=== PATIENT | female | born 1950 | race Caucasian/White ===

== ENCOUNTER 2017-04-27 18:22 | Emergency (ER) | payer MEDICARE ==
[2017-04-27 19:47] VITALS: BP 143/83; TEMP 98; O2SAT 97
[2017-04-27] MEDS ORDERED: CHLORHEXIDINE GLUCONATE 4 % 15 ML UD TOP ONE (19:55)
[2017-04-27] MEDS ORDERED: TETANUS,DIPHTHERIA,PERTUSSIS 1 EA SYG IM ONE (20:12)
[2017-04-27] MEDS ORDERED: NEOMYCIN-BACITRACIN-POLYMYXIN 0.9 GM UD TOP ONE (20:16)
[2017-04-27] MEDS ORDERED: traMADol HCL 50 MG TAB PO ONE (20:16)
--- NOTE | 2017-04-27 20:19 | ED.PDOC ---
History of Present Illness - General Chief Complaint: Laceration Stated Complaint: Laceration to the right thumb Time Seen by Provider: 04/27/17 19:42 Source: patient, RN notes reviewed, Vital Signs reviewed Exam Limitations: no limitations - History of Present Illness Initial Comments: Patient comes in with laceration to her L thumb. She was using a mandolin type sausage cutter and sliced off the distal, lateral tip of her R thumb. Treated with hydrogen peroxide and quick clot which stopped the bleeding. She has not had a tetanus shot in many years. Timing/Duration: just prior to arrival Severity: moderate Location: hands Improving Factors: other - Quick clot Worsening Factors: nothing Associated Symptoms: denies symptoms Allergies/Adverse Reactions: Allergies Codeine Adverse Reaction (Verified 04/27/17 19:35) Home Medications: Ambulatory Orders Aspirin [Aspirin Low Dose/Adult] 81 mg PO 0700 04/27/17 Calcium Citrate-Vitamin D [Citracal + D3 Maximum] 1 tab PO 0700 04/27/17 Escitalopram [Lexapro] 10 mg PO BEDTIME 04/27/17 Esomeprazole Magnesium [Nexium 24Hr] 20 mg PO 0700 04/27/17 Lactobacillus [Acidophilus] 1 tab PO 0700 04/27/17 Lutein 40 mg PO 0700 04/27/17 Methylcellulose (Laxative) [Citrucel] 1 tbls PO 0700 04/27/17 Montelukast [Singulair] 10 mg PO BEDTIME 04/27/17 Valsartan [Diovan] 160 mg PO 0700 04/27/17 Review of Systems - Review of Systems Constitutional: States: no symptoms reported Respiratory: States: no symptoms reported Cardiology: States: no symptoms reported Musculoskeletal: States: no symptoms reported Skin: States: see HPI Neurological: States: no symptoms reported All other Systems: No Change from Baseline Past Medical History (General) - Patient Medical History Hx Seizures: No Hx Stroke: No Hx Dementia: No Hx Asthma: No Hx of COPD: No Hx Cardiac Disorders: No Hx Congestive Heart Failure: No Hx Pacemaker: No Hx Hypertension: Yes Hx Thyroid Disease: No Hx Diabetes: No Hx Gastroesophageal Reflux: No Hx Renal Disease: No Hx Cancer: No Hx of HIV: No Hx Hepatitis C: No Hx MRSA: No Surgical History: Hysterectomy - Vaccination History Hx Tetanus, Diphtheria Vaccination: No Hx Influenza Vaccination: Yes Hx Pneumococcal Vaccination: No Immunizations Up to Date: Yes - Social History Hx Tobacco Use: No Hx Alcohol Use: Yes - Activities of Daily Living Hospice Agency (if applicable):: None - Female History Patient is a Female of Child Bearing Age (10 -59 yrs old): No Family Medical History - Family History Mother Living Status: Age at (years of age): 89 Hx Family Hypertension: Yes Father Living Status: Age of Onset (years of age): 86 Hx Family Hypertension: Yes Hx Cardiac Disease: Yes - [place] Hx Family Cancer: Yes - colon cancer Physical Exam - Physical Exam General Appearance: Alert, Comfortable, No apparent distress, Well Developed, Well Groomed, Well Hydrated, Well Nourished Extremity: normal range of motion Neurologic: no motor/sensory deficits, alert, normal mood/affect, oriented x 3 Skin Exam: warm/dry, normal color Skin Problem Location: upper extremities - R thumb, lateral tip Skin Character: other - Avusion laceration 1.25X0.5cm including edge of fingernail. Not suturable. Progress - Progress Progress: 04/27/17 20:23 Antibiotic ointment and pressure dressing applied by nurse. Departure - Departure Clinical Impression: Laceration of right thumb with damage to nail Qualifiers: Encounter type: initial encounter Foreign body presence: without foreign body Qualified Code(s): S61.111A - Laceration without foreign body of right thumb with damage to nail, initial encounter Time of Disposition: 20:24 Disposition: Discharge to Home or Self Care Condition: Good Departure Forms: ED Discharge - Pt. Copy, Patient Portal Self Enrollment Instructions: DI for Laceration Repair, DI for Avulsion Laceration (Not Requiring Sutures) Diet: resume usual diet Activity: increase activity as tolerated Home Medications: Ambulatory Orders Aspirin [Aspirin Low Dose/Adult] 81 mg PO 0700 04/27/17 Calcium Citrate-Vitamin D [Citracal + D3 Maximum] 1 tab PO 0700 04/27/17 Escitalopram [Lexapro] 10 mg PO BEDTIME 04/27/17 Esomeprazole Magnesium [Nexium 24Hr] 20 mg PO 0700 04/27/17 Lactobacillus [Acidophilus] 1 tab PO 0700 04/27/17 Lutein 40 mg PO 0700 04/27/17 Methylcellulose (Laxative) [Citrucel] 1 tbls PO 0700 04/27/17 Montelukast [Singulair] 10 mg PO BEDTIME 04/27/17 Valsartan [Diovan] 160 mg PO 0700 04/27/17 Additional Instructions: Keep dressing in place for 24 hours then change and reapply with Neosporin twice daily.
== END 2017-04-27 20:35 | disposition home or self-care (01) ==
LOC: ER 18:22
DX: S61.111A Laceration without foreign body of right thumb with damage to nail, initial encounter (principal); I10 Essential (primary) hypertension; Z23 Encounter for immunization; Z88.6 Allergy status to analgesic agent; Z79.82 Long term (current) use of aspirin; Z79.899 Other long term (current) drug therapy; W27.4XXA Contact with kitchen utensil, initial encounter; Y92.9 Unspecified place or not applicable